=== PATIENT | female | born 1960 | race Caucasian/White ===

== ENCOUNTER 2017-07-09 08:04 | Emergency (ER) | payer MEDICAID ==
[~2017-07-09] VITALS: Ht 165.1 cm; Wt 119.6 kg
[~2017-07-09 08:04] MED LIST: ALLO300T PO; AMLO10TA2 PO; ASPI-515 PO; CHOL400T5 PO; FERR325T5 PO; FURO40TA6 PO; GLIP10TA13 PO; LEVO112T4 PO; METO-290 PO
[2017-07-09] MEDS ORDERED: AMLODIPINE 5 MG TABLET ONE (08:58)
[2017-07-09] MEDS ORDERED: DIPHENHYDRAMINE 50 MG/ML, 1ML ONE (08:58)
[2017-07-09] MEDS ORDERED: METOCLOPRAMIDE 5 MG/ML, 2ML ONE ×2 (08:59→11:12)
[2017-07-09] MEDS ORDERED: DIPHENHYDRAMINE 50 MG/ML, 1ML IM ONE (09:00)
[2017-07-09] MEDS ORDERED: AMLODIPINE 5 MG TABLET PO ONE (09:00)
[2017-07-09] MEDS ORDERED: METOPROLOL SUCCINATE 100 MG TAB.ER.24H PO SCH (09:00)
[2017-07-09] MEDS ORDERED: METOCLOPRAMIDE 5 MG/ML, 2ML IM PRN (09:00)
[2017-07-09 09:10] LABS: BASOPHILS # (AUTO) 0.07 x10^3/uL (0-0.1); BASOPHILS % (AUTO) 1 % (0-1); EOSINOPHILS # (AUTO) 0.18 x10^3/uL (0-0.4); EOSINOPHILS % (AUTO) 3 % (1-7); LYMPHOCYTES # (AUTO) 1.33 x10^3/uL (1-3.4); LYMPHOCYTES % (AUTO) 20 % (22-44); MD NO; MEAN CORPUSCULAR HEMOGLOBIN 29.3 pg (27.0-34.8); MEAN CORPUSCULAR HGB CONC 33.7 g/dL (32.4-35.8); MEAN PLATELET VOLUME 7.7 fL (7.4-10.4); MONOCYTES # (AUTO) 0.29 x10^3/uL (0.2-0.8); MONOCYTES % (AUTO) 4 % (2-9); NEUTROPHILS # (AUTO) 4.65 x10^3/uL (1.8-6.8); NEUTROPHILS % (AUTO) 71 % (42-75); PLATELET COUNT 255 x10^3/uL (130-400); RED BLOOD COUNT 3.73 x10^6/uL (3.82-5.3); RED CELL DISTRIBUTION WIDTH 15.2 % (9.6-15.2)
[2017-07-09 09:19] LABS: CHLORIDE 114 mmol/L (98-107)
[2017-07-09 09:20] LABS: ALBUMIN 3.1 g/dL (3.4-5.0); ANION GAP 8 mmol/L (5-15); CALCIUM 8.1 mg/dL (8.5-10.1); CREATININE 4.38 mg/dL (0.55-1.02)
[2017-07-09] MEDS ORDERED: METOCLOPRAMIDE 10MG TABLET PO PRN (09:30)
[2017-07-09] MEDS ORDERED: DIPHENHYDRAMINE 25 MG CAPSULE PO ONE (09:30)
[2017-07-09] MEDS ORDERED: DIPHENHYDRAMINE 50 MG CAPSULE ONE (09:31)
[2017-07-09] MEDS ORDERED: METOCLOPRAMIDE 5 MG/ML, 2ML IVPush ONE (11:00)
[2017-07-09] MEDS ORDERED: hydrALAzine 20 MG/ML, 1ML IV ONE (11:00)
[2017-07-09] MEDS ORDERED: hydrALAzine 20 MG/ML, 1ML ONE (11:12)
[2017-07-09 12:53] VITALS: BP 191/90
== END 2017-07-09 13:33 | disposition home or self-care (01) ==
LOC: ED 08:44
DX: I12.9 Hypertensive chronic kidney disease with stage 1 through stage 4 chronic kidney disease, or unspecified chronic kidney disease (principal); N18.9 Chronic kidney disease, unspecified; I50.9 Heart failure, unspecified; E11.22 Type 2 diabetes mellitus with diabetic chronic kidney disease; J44.9 Chronic obstructive pulmonary disease, unspecified; R51 Headache; Z76.0 Encounter for issue of repeat prescription; Z87.891 Personal history of nicotine dependence; Z86.73 Personal history of transient ischemic attack (TIA), and cerebral infarction without residual deficits
CPT/HCPCS: 36415; 80048; 82040; 85025; 96374; 96375; 99284; J0360; J2765; Q0163

== ENCOUNTER 2017-11-22 13:28 | Inpatient (IN) | payer MEDICAID ==
[~2017-11-22] VITALS: Ht 165.1 cm; Wt 112.9 kg
[~2017-11-22 13:28] MED LIST changes: +BUDE10.22 INH; +CALC667C PO; +CARV25TA12 PO; +CLON0.2T PO; +ERGO500017 PO; +INSU100C SQ-INSULIN; +INSU100V8 SQ; +ISOS5TAB2 PO; +METO200T47 PO; +PANT20TA2 PO; +SODI650T PO
[2017-11-22] MEDS ORDERED: SODIUM CHLORIDE FLUSH 10ML SYR IVF ONE (14:00)
[2017-11-22 14:09] LABS: BASOPHILS # (AUTO) 0.03 x10^3/uL (0-0.1); BASOPHILS % (AUTO) 0 % (0-1); EOSINOPHILS # (AUTO) 0.22 x10^3/uL (0-0.4); EOSINOPHILS % (AUTO) 3 % (1-7); LYMPHOCYTES # (AUTO) 1.25 x10^3/uL (1-3.4); LYMPHOCYTES % (AUTO) 15 % (22-44); MD NO; MEAN CORPUSCULAR HEMOGLOBIN 29.4 pg (27.0-34.8); MEAN CORPUSCULAR VOLUME 86.7 fL (80-100); MEAN PLATELET VOLUME 7.8 fL (7.4-10.4); MONOCYTES # (AUTO) 0.24 x10^3/uL (0.2-0.8); MONOCYTES % (AUTO) 3 % (2-9); NEUTROPHILS # (AUTO) 6.48 x10^3/uL (1.8-6.8); NEUTROPHILS % (AUTO) 79 % (42-75); PLATELET COUNT 323 x10^3/uL (130-400); RED BLOOD COUNT 3.22 x10^6/uL (3.82-5.3); RED CELL DISTRIBUTION WIDTH 13.5 % (9.6-15.2)
[2017-11-22 14:16] LABS: INTERNATIONAL NORMALIZED RATIO 0.99 (0.93-1.1); PROTHROMBIN TIME 10.2 Seconds (9.6-11.5)
[2017-11-22 14:19] LABS: ALBUMIN 3.4 g/dL (3.4-5.0); ANION GAP 11 mmol/L (5-15); CALCIUM 8.2 mg/dL (8.5-10.1); CHLORIDE 110 mmol/L (98-107)
[2017-11-22 14:24] LABS: ALANINE AMINOTRANSFERASE 14 U/L (12-78); ALKALINE PHOSPHATASE 112 U/L (45-117); BILIRUBIN,TOTAL 0.5 mg/dL (0.2-1.0); CREATININE 7.55 mg/dL (0.55-1.02); TOTAL PROTEIN 7.4 g/dL (6.4-8.2); TROPONIN I < 0.015 ng/mL (0.000-0.045)
[2017-11-22] MEDS ORDERED: ERGOCALCIFEROL 50,000 UNIT CAPSULE PO SCH ×2 (15:00→15:30)
[2017-11-22] MEDS ORDERED: LABETALOL 5MG/ML, 20ML IVPush PRN (15:30)
[2017-11-22] MEDS ORDERED: POLYETHYLENE GLYCOL 17 GM PACKET PO PRN (15:30)
[2017-11-22] MEDS ORDERED: ONDANSETRON ODT 4 MG PO PRN (15:30)
[2017-11-22 16:02] VITALS: BP 160/79
[2017-11-22] MEDS: HEPARIN 5,000 UNITS/ML, 1ML SQ SCH ×2 (16:14→20:29)
[2017-11-22] MEDS: IRON SUCROSE COMPLEX 100MG/5ML IV SCH (16:26)
[2017-11-22] MEDS: SODIUM BICARBONATE 650 MG TABLET PO SCH ×2 (16:27→20:28)
[2017-11-22] MEDS: CARVEDILOL 25 MG TABLET PO SCH (16:27)
[2017-11-22] MEDS ORDERED: CALCIUM ACETATE 667 MG CAPSULE PO SCH (17:00)
[2017-11-22] MEDS ORDERED: ALBUTEROL SULFATE 2.5 MG/3 ML NPPB PRN (17:00)
[2017-11-22] MEDS: INSULIN LISPRO 100 UNITS/ML, PEN SQ-INSULIN SCH ×2 (17:20→20:28)
[2017-11-22 19:00] VITALS: BP 178/80
[2017-11-22 20:21] LABS: TROPONIN I < 0.015 ng/mL (0.000-0.045)
[2017-11-22] MEDS: PANTOPRAZOLE 20MG TABLET PO SCH (20:28)
[2017-11-22 23:00] VITALS: BP 147/67
[2017-11-22] MEDS ORDERED: hydrALAzine 20 MG/ML, 1ML IV PRN (23:00)
[2017-11-23 01:02] VITALS: BP 173/74
[2017-11-23 02:14] LABS: BASOPHILS # (AUTO) 0.06 x10^3/uL (0-0.1); BASOPHILS % (AUTO) 1 % (0-1); EOSINOPHILS # (AUTO) 0.24 x10^3/uL (0-0.4); EOSINOPHILS % (AUTO) 3 % (1-7); LYMPHOCYTES # (AUTO) 2.15 x10^3/uL (1-3.4); LYMPHOCYTES % (AUTO) 25 % (22-44); MD NO; MEAN CORPUSCULAR HEMOGLOBIN 29.9 pg (27.0-34.8); MEAN CORPUSCULAR HGB CONC 34.6 g/dL (32.4-35.8); MEAN CORPUSCULAR VOLUME 86.4 fL (80-100); MEAN PLATELET VOLUME 7.8 fL (7.4-10.4); MONOCYTES # (AUTO) 0.43 x10^3/uL (0.2-0.8); MONOCYTES % (AUTO) 5 % (2-9); NEUTROPHILS # (AUTO) 5.67 x10^3/uL (1.8-6.8); NEUTROPHILS % (AUTO) 66 % (42-75); PLATELET COUNT 303 x10^3/uL (130-400); RED BLOOD COUNT 3.01 x10^6/uL (3.82-5.3); RED CELL DISTRIBUTION WIDTH 13.5 % (9.6-15.2)
[2017-11-23 02:22] LABS: ALANINE AMINOTRANSFERASE 13 U/L (12-78); ALBUMIN 3.2 g/dL (3.4-5.0); ANION GAP 12 mmol/L (5-15); CALCIUM 8.9 mg/dL (8.5-10.1); CHLORIDE 112 mmol/L (98-107)
[2017-11-23 02:24] LABS: ALKALINE PHOSPHATASE 102 U/L (45-117); BILIRUBIN,TOTAL 0.3 mg/dL (0.2-1.0); TROPONIN I < 0.015 ng/mL (0.000-0.045)
[2017-11-23] MEDS: CARVEDILOL 25 MG TABLET PO SCH ×2 (05:48→16:11)
[2017-11-23] MEDS: INSULIN LISPRO 100 UNITS/ML, PEN SQ-INSULIN SCH ×4 (07:00→21:09)
[2017-11-23 07:04] VITALS: BP 145/75
[2017-11-23] MEDS ORDERED: LIDOCAINE-MPF 1%, 2ML ONE ×2 (07:34→08:41)
[2017-11-23] MEDS: FLUTICASONE/VILANTEROL 100-25MCG/INH INH SCH (09:00)
[2017-11-23] MEDS: SENNA/DOCUSATE TABLET PO SCH (09:00)
[2017-11-23] MEDS: HEPARIN 5,000 UNITS/ML, 1ML SQ SCH ×2 (09:00→16:09)
[2017-11-23] MEDS ORDERED: PANTOPRAZOLE 20MG TABLET PO SCH (09:00)
[2017-11-23] MEDS ORDERED: ACETAMINOPHEN 325 MG TABLET ONE (12:19)
[2017-11-23] MEDS: ACETAMINOPHEN 325 MG TABLET PO PRN ×2 (12:24→18:18)
[2017-11-23] MEDS: PANTOPRAZOLE 20MG TABLET PO SCH ×2 (12:24→21:08)
[2017-11-23] MEDS: ASPIRIN 81 MG TABLET EC PO SCH (12:24)
[2017-11-23 12:29] VITALS: BP 174/82
[2017-11-23] MEDS: AMLODIPINE 5 MG TABLET PO SCH (12:29)
[2017-11-23 16:13] VITALS: BP 173/74
[2017-11-23 19:09] VITALS: BP 152/68
[2017-11-23] MEDS: DIPHENHYDRAMINE 25 MG CAPSULE PO PRN (21:57)
[2017-11-24] MEDS: HEPARIN 5,000 UNITS/ML, 1ML SQ SCH ×3 (01:00→17:00)
[2017-11-24 01:04] VITALS: BP 154/73
[2017-11-24] MEDS: ACETAMINOPHEN 325 MG TABLET PO PRN ×3 (05:16→22:22)
[2017-11-24 05:58] LABS: BASOPHILS # (AUTO) 0.04 x10^3/uL (0-0.1); BASOPHILS % (AUTO) 1 % (0-1); EOSINOPHILS # (AUTO) 0.23 x10^3/uL (0-0.4); EOSINOPHILS % (AUTO) 3 % (1-7); LYMPHOCYTES # (AUTO) 2.01 x10^3/uL (1-3.4); LYMPHOCYTES % (AUTO) 26 % (22-44); MD NO; MEAN CORPUSCULAR HEMOGLOBIN 29.8 pg (27.0-34.8); MEAN CORPUSCULAR HGB CONC 34.3 g/dL (32.4-35.8); MEAN PLATELET VOLUME 7.9 fL (7.4-10.4); MONOCYTES # (AUTO) 0.44 x10^3/uL (0.2-0.8); MONOCYTES % (AUTO) 6 % (2-9); NEUTROPHILS # (AUTO) 4.92 x10^3/uL (1.8-6.8); NEUTROPHILS % (AUTO) 65 % (42-75); PLATELET COUNT 313 x10^3/uL (130-400); RED CELL DISTRIBUTION WIDTH 13.4 % (9.6-15.2)
[2017-11-24 06:02] LABS: ALBUMIN 3.3 g/dL (3.4-5.0); ANION GAP 9 mmol/L (5-15); CALCIUM 8.7 mg/dL (8.5-10.1); CHLORIDE 109 mmol/L (98-107)
[2017-11-24 06:05] LABS: ALANINE AMINOTRANSFERASE 14 U/L (12-78); ALKALINE PHOSPHATASE 103 U/L (45-117); BILIRUBIN,TOTAL 0.4 mg/dL (0.2-1.0); CREATININE 6.11 mg/dL (0.55-1.02); TOTAL PROTEIN 7.2 g/dL (6.4-8.2)
[2017-11-24 06:48] VITALS: BP 143/82
[2017-11-24] MEDS: INSULIN LISPRO 100 UNITS/ML, PEN SQ-INSULIN SCH ×4 (07:00→21:41)
[2017-11-24] MEDS: SENNA/DOCUSATE TABLET PO SCH (07:38)
[2017-11-24] MEDS: FLUTICASONE/VILANTEROL 100-25MCG/INH INH SCH (07:38)
[2017-11-24] MEDS: CARVEDILOL 25 MG TABLET PO SCH ×2 (07:38→17:35)
[2017-11-24] MEDS: ONDANSETRON 2MG/ML, 2ML IVPush PRN (12:00)
[2017-11-24] MEDS: AMLODIPINE 5 MG TABLET PO SCH (12:00)
[2017-11-24] MEDS: ASPIRIN 81 MG TABLET EC PO SCH (12:22)
[2017-11-24] MEDS: IRON SUCROSE COMPLEX 100MG/5ML IV SCH (12:22)
[2017-11-24] MEDS: PANTOPRAZOLE 20MG TABLET PO SCH ×2 (12:22→21:41)
[2017-11-24 13:12] VITALS: BP 119/71
[2017-11-24 19:47] LABS: TROPONIN I < 0.015 ng/mL (0.000-0.045)
[2017-11-24] MEDS: DIPHENHYDRAMINE 25 MG CAPSULE PO PRN (21:41)
[2017-11-24 22:10] VITALS: BP 144/72
[2017-11-25] MEDS: HEPARIN 5,000 UNITS/ML, 1ML SQ SCH ×4 (01:00→21:09)
[2017-11-25 01:06] VITALS: BP 129/77
[2017-11-25 05:33] LABS: BASOPHILS # (AUTO) 0.02 x10^3/uL (0-0.1); BASOPHILS % (AUTO) 0 % (0-1); EOSINOPHILS # (AUTO) 0.26 x10^3/uL (0-0.4); EOSINOPHILS % (AUTO) 3 % (1-7); LYMPHOCYTES # (AUTO) 2.15 x10^3/uL (1-3.4); LYMPHOCYTES % (AUTO) 25 % (22-44); MD NO; MEAN CORPUSCULAR HEMOGLOBIN 29.2 pg (27.0-34.8); MEAN CORPUSCULAR HGB CONC 33.4 g/dL (32.4-35.8); MEAN CORPUSCULAR VOLUME 87.2 fL (80-100); MEAN PLATELET VOLUME 7.7 fL (7.4-10.4); MONOCYTES % (AUTO) 2 % (2-9); NEUTROPHILS # (AUTO) 6.11 x10^3/uL (1.8-6.8); NEUTROPHILS % (AUTO) 70 % (42-75); PLATELET COUNT 296 x10^3/uL (130-400); RED BLOOD COUNT 3.33 x10^6/uL (3.82-5.3); RED CELL DISTRIBUTION WIDTH 13.8 % (9.6-15.2)
[2017-11-25 05:45] LABS: ALBUMIN 3.4 g/dL (3.4-5.0); ANION GAP 10 mmol/L (5-15); CALCIUM 8.2 mg/dL (8.5-10.1); CHLORIDE 105 mmol/L (98-107)
[2017-11-25 05:49] LABS: ALANINE AMINOTRANSFERASE 16 U/L (12-78); ALKALINE PHOSPHATASE 103 U/L (45-117); BILIRUBIN,TOTAL 0.4 mg/dL (0.2-1.0); CREATININE 5.54 mg/dL (0.55-1.02); TOTAL PROTEIN 7.4 g/dL (6.4-8.2)
[2017-11-25 05:55] LABS: TROPONIN I < 0.015 ng/mL (0.000-0.045)
[2017-11-25] MEDS: INSULIN LISPRO 100 UNITS/ML, PEN SQ-INSULIN SCH ×4 (07:00→21:08)
[2017-11-25 07:12] VITALS: BP 137/73
[2017-11-25] MEDS: SENNA/DOCUSATE TABLET PO SCH ×2 (09:00→17:04)
[2017-11-25] MEDS: ACETAMINOPHEN 325 MG TABLET PO PRN ×2 (09:02→23:01)
[2017-11-25] MEDS: ONDANSETRON 2MG/ML, 2ML IVPush PRN (09:34)
[2017-11-25 12:53] VITALS: BP 150/80
[2017-11-25] MEDS: FLUTICASONE/VILANTEROL 100-25MCG/INH INH SCH (12:55)
[2017-11-25] MEDS: AMLODIPINE 5 MG TABLET PO SCH (12:55)
[2017-11-25] MEDS: PANTOPRAZOLE 20MG TABLET PO SCH ×2 (12:55→21:08)
[2017-11-25] MEDS: CARVEDILOL 25 MG TABLET PO SCH ×2 (12:56→21:08)
[2017-11-25] MEDS: ASPIRIN 81 MG TABLET EC PO SCH (12:56)
[2017-11-25 15:14] VITALS: BP 106/70
[2017-11-25 20:00] VITALS: BP 134/77
[2017-11-25] MEDS: DIPHENHYDRAMINE 25 MG CAPSULE PO PRN (23:01)
[2017-11-26] VITALS (7 sets, daily range): BP systolic 85–131; BP diastolic 46–80
[2017-11-26 05:57] LABS: CHLORIDE 102 mmol/L (98-107)
[2017-11-26] MEDS: CARVEDILOL 25 MG TABLET PO SCH ×2 (05:59→18:00)
[2017-11-26 06:18] LABS: ALANINE AMINOTRANSFERASE 17 U/L (12-78); ALBUMIN 3.4 g/dL (3.4-5.0); ALKALINE PHOSPHATASE 103 U/L (45-117); ANION GAP 9 mmol/L (5-15); BILIRUBIN,TOTAL 0.5 mg/dL (0.2-1.0); CALCIUM 8.3 mg/dL (8.5-10.1); TOTAL PROTEIN 7.3 g/dL (6.4-8.2)
[2017-11-26] MEDS: INSULIN LISPRO 100 UNITS/ML, PEN SQ-INSULIN SCH ×4 (07:00→20:44)
[2017-11-26] MEDS: AMLODIPINE 5 MG TABLET PO SCH (09:00)
[2017-11-26] MEDS: HEPARIN 5,000 UNITS/ML, 1ML SQ SCH (09:00)
[2017-11-26] MEDS: SENNA/DOCUSATE TABLET PO SCH (09:00)
[2017-11-26] MEDS: ASPIRIN 81 MG TABLET EC PO SCH (09:39)
[2017-11-26] MEDS: IRON SUCROSE COMPLEX 100MG/5ML IV SCH ×2 (09:39→10:14)
[2017-11-26] MEDS: FLUTICASONE/VILANTEROL 100-25MCG/INH INH SCH (09:39)
[2017-11-26] MEDS: PANTOPRAZOLE 20MG TABLET PO SCH ×2 (09:40→20:43)
[2017-11-27 02:00] VITALS: BP 141/73
[2017-11-27] MEDS: CARVEDILOL 25 MG TABLET PO SCH (05:57)
[2017-11-27] MEDS: INSULIN LISPRO 100 UNITS/ML, PEN SQ-INSULIN SCH ×4 (07:40→19:58)
[2017-11-27 07:44] VITALS: BP 144/67
[2017-11-27] MEDS ORDERED: MIDAZOLAM 1 MG/ML, 5ML ONE (08:36)
[2017-11-27] MEDS ORDERED: FENTANYL PF 100 MCG/2ML ONE (08:36)
[2017-11-27] MEDS ORDERED: LIDOCAINE 2%, 20ML ONE ×3 (08:55→08:56)
[2017-11-27] MEDS ORDERED: CEFAZOLIN PMX 1GM/50ML 50 ML ONE (09:22)
[2017-11-27] MEDS: PANTOPRAZOLE 20MG TABLET PO SCH ×2 (11:14→19:57)
[2017-11-27] MEDS: SENNA/DOCUSATE TABLET PO SCH (11:14)
[2017-11-27] MEDS: ASPIRIN 81 MG TABLET EC PO SCH (11:14)
[2017-11-27] MEDS: FLUTICASONE/VILANTEROL 100-25MCG/INH INH SCH (11:14)
[2017-11-27] MEDS: ACETAMINOPHEN 325 MG TABLET PO PRN (13:36)
[2017-11-27] MEDS: ONDANSETRON 2MG/ML, 2ML IVPush PRN (13:36)
[2017-11-27 15:14] VITALS: BP 144/77
[2017-11-27 20:00] VITALS: BP 136/65
[2017-11-27] MEDS: MORPHINE SULFATE 4 MG/ML, 1ML IVPush PRN (21:53)
[2017-11-28 02:00] VITALS: BP 159/68
[2017-11-28 07:45] VITALS: BP 129/66
[2017-11-28] MEDS: INSULIN LISPRO 100 UNITS/ML, PEN SQ-INSULIN SCH ×2 (08:12→11:22)
[2017-11-28] MEDS: FLUTICASONE/VILANTEROL 100-25MCG/INH INH SCH (08:53)
[2017-11-28] MEDS: PANTOPRAZOLE 20MG TABLET PO SCH (08:53)
[2017-11-28] MEDS: ASPIRIN 81 MG TABLET EC PO SCH (08:53)
[2017-11-28] MEDS: SENNA/DOCUSATE TABLET PO SCH (08:53)
[2017-11-28] MEDS: IRON SUCROSE COMPLEX 100MG/5ML IV SCH (08:53)
[2017-11-28] MEDS: MORPHINE SULFATE 4 MG/ML, 1ML IVPush PRN (08:54)
[2017-11-28] MEDS ORDERED: AMLODIPINE 5 MG TABLET PO SCH (09:00)
[2017-11-28] MEDS: ONDANSETRON 2MG/ML, 2ML IVPush PRN (11:22)
[2017-11-28 15:33] VITALS: BP 136/73
== END 2017-11-28 17:36 | disposition home or self-care (01) | DRG 291 ==
LOC: ED 14:09 → EDIP 14:51 → 4WST 16:00
PROVIDERS: ADMIT Internal Medicine; ATTEND Internal Medicine
PROC: 5A1D70Z Performance of Urinary Filtration, Intermittent, Less than 6 Hours Per Day (ICD-10-PCS; 2017-11-23)
PROC: 5A1D70Z Performance of Urinary Filtration, Intermittent, Less than 6 Hours Per Day (ICD-10-PCS; 2017-11-24)
PROC: 5A1D70Z Performance of Urinary Filtration, Intermittent, Less than 6 Hours Per Day (ICD-10-PCS; 2017-11-25)
PROC: 0JH63XZ Insertion of Tunneled Vascular Access Device into Chest Subcutaneous Tissue and Fascia, Percutaneous Approach (ICD-10-PCS; principal; 2017-11-27)
PROC: 02HV33Z Insertion of Infusion Device into Superior Vena Cava, Percutaneous Approach (ICD-10-PCS; 2017-11-27)
PROC: B5181ZA Fluoroscopy of Superior Vena Cava using Low Osmolar Contrast, Guidance (ICD-10-PCS; 2017-11-27)
PROC: 5A1D70Z Performance of Urinary Filtration, Intermittent, Less than 6 Hours Per Day (ICD-10-PCS; 2017-11-27)
PROC: B548ZZA Ultrasonography of Superior Vena Cava, Guidance (ICD-10-PCS; 2017-11-27)
DX: I13.2 Hypertensive heart and chronic kidney disease with heart failure and with stage 5 chronic kidney disease, or end stage renal disease (principal); N18.6 End stage renal disease; N17.9 Acute kidney failure, unspecified; I50.32 Chronic diastolic (congestive) heart failure; J96.10 Chronic respiratory failure, unspecified whether with hypoxia or hypercapnia; E87.2 Acidosis; E44.0 Moderate protein-calorie malnutrition; N25.81 Secondary hyperparathyroidism of renal origin; D63.1 Anemia in chronic kidney disease; M10.9 Gout, unspecified; K21.9 Gastro-esophageal reflux disease without esophagitis; E03.9 Hypothyroidism, unspecified; E11.22 Type 2 diabetes mellitus with diabetic chronic kidney disease; E11.65 Type 2 diabetes mellitus with hyperglycemia; N25.0 Renal osteodystrophy; E66.9 Obesity, unspecified; E55.9 Vitamin D deficiency, unspecified; Z99.81 Dependence on supplemental oxygen; Z99.2 Dependence on renal dialysis; Z91.19 Patient's noncompliance with other medical treatment and regimen; Z86.73 Personal history of transient ischemic attack (TIA), and cerebral infarction without residual deficits; Z84.1 Family history of disorders of kidney and ureter; Z82.49 Family history of ischemic heart disease and other diseases of the circulatory system; Z72.0 Tobacco use; Z90.89 Acquired absence of other organs; Z98.51 Tubal ligation status; Z88.8 Allergy status to other drugs, medicaments and biological substances; Z68.27 Body mass index [BMI] 27.0-27.9, adult
CPT/HCPCS: 36415; 36556; 36558; 71045; 77001; 80053; 80074; 82962; 83735; 83970; 84100; 84484; 85025; 85610; 85730; 86480; 93005; 99285; C1894; J0690; J1756; J2250; J2405; J3010; J3490; C1750; C1751; G0365; J0360; J1642; J1815; Q0163

== ENCOUNTER 2017-12-15 00:54 | Emergency (ER) | payer MEDICAID ==
[~2017-12-15] VITALS: Ht 165.1 cm; Wt 112.0 kg
[2017-12-15 01:20] LABS: BASOPHILS # (AUTO) 0.13 x10^3/uL (0-0.1); BASOPHILS % (AUTO) 2 % (0-1); EOSINOPHILS # (AUTO) 0.22 x10^3/uL (0-0.4); EOSINOPHILS % (AUTO) 3 % (1-7); LYMPHOCYTES # (AUTO) 2.61 x10^3/uL (1-3.4); LYMPHOCYTES % (AUTO) 32 % (22-44); MD NO; MEAN CORPUSCULAR HEMOGLOBIN 30.5 pg (27.0-34.8); MEAN CORPUSCULAR HGB CONC 33.7 g/dL (32.4-35.8); MEAN CORPUSCULAR VOLUME 90.6 fL (80-100); MEAN PLATELET VOLUME 7.9 fL (7.4-10.4); MONOCYTES # (AUTO) 0.34 x10^3/uL (0.2-0.8); MONOCYTES % (AUTO) 4 % (2-9); NEUTROPHILS # (AUTO) 4.92 x10^3/uL (1.8-6.8); NEUTROPHILS % (AUTO) 60 % (42-75); PLATELET COUNT 335 x10^3/uL (130-400); RED BLOOD COUNT 3.31 x10^6/uL (3.82-5.3)
[2017-12-15 01:29] LABS: ALANINE AMINOTRANSFERASE 17 U/L (12-78); ALBUMIN 3.3 g/dL (3.4-5.0); ANION GAP 5 mmol/L (5-15); CALCIUM 8.4 mg/dL (8.5-10.1); CHLORIDE 102 mmol/L (98-107); CREATININE 5.92 mg/dL (0.55-1.02)
[2017-12-15 01:33] LABS: ALKALINE PHOSPHATASE 94 U/L (45-117); BILIRUBIN,TOTAL 0.4 mg/dL (0.2-1.0); TOTAL PROTEIN 7.1 g/dL (6.4-8.2); TROPONIN I < 0.015 ng/mL (0.000-0.045)
[2017-12-15 02:20] VITALS: BP 129/52
== END 2017-12-15 03:28 | disposition home or self-care (01) ==
LOC: ED 01:26
DX: R07.2 Precordial pain (principal); I11.0 Hypertensive heart disease with heart failure; I50.9 Heart failure, unspecified; E11.9 Type 2 diabetes mellitus without complications; Z86.73 Personal history of transient ischemic attack (TIA), and cerebral infarction without residual deficits
CPT/HCPCS: 36415; 71045; 80053; 84484; 85025; 93005; 99285

== ENCOUNTER 2017-12-25 18:44 | Inpatient (IN) | payer MEDICAID ==
[~2017-12-25] VITALS: Ht 165.1 cm; Wt 80.3 kg
[2017-12-25] MEDS ORDERED: OMEP-110 PO (19:01)
[2017-12-25] MEDS ORDERED: ASPIRIN 81 MG TABLET CHEW ONE (19:07)
[2017-12-25 19:27] LABS: BASOPHILS # (AUTO) 0.01 x10^3/uL (0-0.1); BASOPHILS % (AUTO) 0 % (0-1); EOSINOPHILS # (AUTO) 0.01 x10^3/uL (0-0.4); EOSINOPHILS % (AUTO) 0 % (1-7); LYMPHOCYTES # (AUTO) 1.03 x10^3/uL (1-3.4); LYMPHOCYTES % (AUTO) 10 % (22-44); MD NO; MEAN CORPUSCULAR HEMOGLOBIN 30.2 pg (27.0-34.8); MEAN CORPUSCULAR HGB CONC 33.2 g/dL (32.4-35.8); MEAN CORPUSCULAR VOLUME 90.7 fL (80-100); MONOCYTES # (AUTO) 0.15 x10^3/uL (0.2-0.8); MONOCYTES % (AUTO) 2 % (2-9); NEUTROPHILS # (AUTO) 8.76 x10^3/uL (1.8-6.8); NEUTROPHILS % (AUTO) 88 % (42-75); PLATELET COUNT 333 x10^3/uL (130-400)
[2017-12-25 19:30] LABS: ALANINE AMINOTRANSFERASE 27 U/L (12-78); ALBUMIN 3.3 g/dL (3.4-5.0); ANION GAP 8 mmol/L (5-15); CHLORIDE 100 mmol/L (98-107); CREATININE 3.67 mg/dL (0.55-1.02)
[2017-12-25] MEDS ORDERED: ASPIRIN 81 MG TABLET CHEW PO ONE (19:30)
[2017-12-25 19:33] LABS: INTERNATIONAL NORMALIZED RATIO 0.96 (0.93-1.1)
[2017-12-25 19:35] LABS: ALKALINE PHOSPHATASE 130 U/L (45-117); BILIRUBIN,TOTAL 0.5 mg/dL (0.2-1.0); TOTAL PROTEIN 7.5 g/dL (6.4-8.2); TROPONIN I 0.023 ng/mL (0.000-0.045)
[2017-12-25] MEDS ORDERED: FUROSEMIDE 20 MG/2 ML IV ONE (21:30)
[2017-12-25 22:45] VITALS: BP 138/72
[2017-12-25] MEDS ORDERED: ERGOCALCIFEROL 50,000 UNIT CAPSULE PO SCH (23:30)
[2017-12-26] MEDS ORDERED: DOCUSATE 100 MG CAPSULE PO PRN
[2017-12-26] MEDS ORDERED: hydrALAzine 20 MG/ML, 1ML IVPush PRN
[2017-12-26] MEDS ORDERED: PROMETHAZINE 25 MG/ML, 1ML IM PRN
[2017-12-26] MEDS ORDERED: ACETAMINOPHEN 325 MG TABLET PO PRN
[2017-12-26] MEDS ORDERED: BISACODYL 10 MG SUPP PR PRN
[2017-12-26] MEDS ORDERED: ONDANSETRON 2MG/ML, 2ML IVPush PRN
[2017-12-26] MEDS ORDERED: POLYETHYLENE GLYCOL 17 GM PACKET PO PRN
[2017-12-26] MEDS ORDERED: LABETALOL 5MG/ML, 20ML IVPush PRN
[2017-12-26] MEDS ORDERED: ONDANSETRON ODT 4 MG PO PRN
[2017-12-26 00:11] LABS: FREE T4 (FREE THYROXINE) 1.28 ng/dL (0.76-1.46); THYROID STIMULATING HORMONE 4.12 mIU/L (0.358-3.740)
[2017-12-26 00:17] LABS: HEMOGLOBIN A1C 5.5 % (4.2-6.3)
[2017-12-26] MEDS: FUROSEMIDE 40 MG/4 ML IV SCH ×2 (00:17→08:58)
[2017-12-26] MEDS ORDERED: ALBUTEROL SULFATE 2.5 MG/3 ML NPPB PRN (01:00)
[2017-12-26 03:24] LABS: BASOPHILS # (AUTO) 0.02 x10^3/uL (0-0.1); BASOPHILS % (AUTO) 0 % (0-1); EOSINOPHILS # (AUTO) 0.08 x10^3/uL (0-0.4); EOSINOPHILS % (AUTO) 1 % (1-7); LYMPHOCYTES # (AUTO) 1.81 x10^3/uL (1-3.4); LYMPHOCYTES % (AUTO) 18 % (22-44); MD NO; MEAN CORPUSCULAR HEMOGLOBIN 30.5 pg (27.0-34.8); MEAN CORPUSCULAR HGB CONC 33.6 g/dL (32.4-35.8); MEAN CORPUSCULAR VOLUME 90.6 fL (80-100); MEAN PLATELET VOLUME 7.9 fL (7.4-10.4); MONOCYTES # (AUTO) 0.34 x10^3/uL (0.2-0.8); MONOCYTES % (AUTO) 3 % (2-9); NEUTROPHILS % (AUTO) 77 % (42-75); PLATELET COUNT 330 x10^3/uL (130-400); RED BLOOD COUNT 3.71 x10^6/uL (3.82-5.3); RED CELL DISTRIBUTION WIDTH 14.8 % (9.6-15.2)
[2017-12-26 03:36] LABS: ALBUMIN 3.1 g/dL (3.4-5.0); ANION GAP 8 mmol/L (5-15); CALCIUM 8.6 mg/dL (8.5-10.1); CHLORIDE 101 mmol/L (98-107)
[2017-12-26 03:44] LABS: ALANINE AMINOTRANSFERASE 22 U/L (12-78); ALKALINE PHOSPHATASE 113 U/L (45-117); BILIRUBIN,TOTAL 0.5 mg/dL (0.2-1.0); CHOL/HDL RATIO 4.4; CHOLESTEROL, TOTAL 164 mg/dL (140-239); CREATININE 4.68 mg/dL (0.55-1.02); HDL CHOL % 23 % (28-40); HDL CHOLESTEROL (DIRECT) 37 mg/dL (40-60); LDL CHOLESTEROL,CALCULATED 81 mg/dL (54-169); LDL/HDL RATIO 2.2 (0.5-3.0); TOTAL PROTEIN 7.1 g/dL (6.4-8.2); TRIGLYCERIDES 231 mg/dL (50-200); TROPONIN I 0.145 ng/mL (0.000-0.045); VLDL CHOLESTEROL 46 mg/dL (0-25)
[2017-12-26] MEDS ORDERED: TEMPLATE NON-FORMULARY MED. (Carvedilol** 25 MG) PO SCH (06:00)
[2017-12-26 06:01] VITALS: BP 125/70
[2017-12-26] MEDS: HEPARIN 5,000 UNITS/ML, 1ML SQ SCH ×3 (06:04→22:14)
[2017-12-26] MEDS: INSULIN LISPRO 100 UNITS/ML, PEN SQ-INSULIN SCH ×4 (07:00→20:50)
[2017-12-26] MEDS: CALCIUM ACETATE 667 MG CAPSULE PO SCH ×3 (08:00→20:50)
[2017-12-26 08:23] VITALS: BP 157/79
[2017-12-26] MEDS: OMEPRAZOLE 20 MG CAPSULE.DR PO SCH (08:53)
[2017-12-26] MEDS: LOSARTAN 50MG TABLET PO SCH (08:53)
[2017-12-26] MEDS: AMLODIPINE 5 MG TABLET PO SCH (08:53)
[2017-12-26] MEDS: ASPIRIN 81 MG TABLET EC PO SCH (08:53)
[2017-12-26] MEDS: CARVEDILOL 12.5 MG TABLET PO SCH ×2 (08:58→20:50)
[2017-12-26] MEDS: SODIUM BICARBONATE 650 MG TABLET PO SCH ×3 (09:00→20:48)
[2017-12-26 10:54] LABS: TROPONIN I 0.063 ng/mL (0.000-0.045)
[2017-12-26 13:50] VITALS: BP 115/72
[2017-12-26] MEDS ORDERED: OMNIPAQUE 350 MG/ML, 100ML BOTTLE ONE (16:19)
[2017-12-26 19:57] VITALS: BP 102/64
[2017-12-26] MEDS ORDERED: ATORVASTATIN 40 MG TABLET PO SCH (21:00)
[2017-12-27 02:56] VITALS: BP 102/65
[2017-12-27 05:50] LABS: BASOPHILS # (AUTO) 0.06 x10^3/uL (0-0.1); BASOPHILS % (AUTO) 1 % (0-1); EOSINOPHILS # (AUTO) 0.33 x10^3/uL (0-0.4); EOSINOPHILS % (AUTO) 3 % (1-7); LYMPHOCYTES # (AUTO) 2.61 x10^3/uL (1-3.4); LYMPHOCYTES % (AUTO) 26 % (22-44); MD NO; MEAN CORPUSCULAR HEMOGLOBIN 30.5 pg (27.0-34.8); MEAN CORPUSCULAR HGB CONC 33.4 g/dL (32.4-35.8); MEAN CORPUSCULAR VOLUME 91.1 fL (80-100); MEAN PLATELET VOLUME 8.2 fL (7.4-10.4); MONOCYTES # (AUTO) 0.56 x10^3/uL (0.2-0.8); MONOCYTES % (AUTO) 6 % (2-9); NEUTROPHILS # (AUTO) 6.46 x10^3/uL (1.8-6.8); NEUTROPHILS % (AUTO) 65 % (42-75); PLATELET COUNT 297 x10^3/uL (130-400); RED BLOOD COUNT 3.55 x10^6/uL (3.82-5.3); RED CELL DISTRIBUTION WIDTH 15.5 % (9.6-15.2)
[2017-12-27 06:05] LABS: ALBUMIN 3.4 g/dL (3.4-5.0); CALCIUM 8.6 mg/dL (8.5-10.1); CHLORIDE 100 mmol/L (98-107)
[2017-12-27 06:18] LABS: ANION GAP 10 mmol/L (5-15); CREATININE 7.37 mg/dL (0.55-1.02)
[2017-12-27] MEDS: HEPARIN 5,000 UNITS/ML, 1ML SQ SCH ×2 (06:27→14:00)
[2017-12-27 06:57] LABS: CULTURE INDICATED? YES; MICROSCOPIC INDICATED
[2017-12-27 07:50] VITALS: BP 110/70
[2017-12-27] MEDS: INSULIN LISPRO 100 UNITS/ML, PEN SQ-INSULIN SCH ×3 (08:19→16:00)
[2017-12-27] MEDS: ASPIRIN 81 MG TABLET EC PO SCH (08:20)
[2017-12-27] MEDS: CALCIUM ACETATE 667 MG CAPSULE PO SCH ×3 (08:21→17:00)
[2017-12-27] MEDS: FUROSEMIDE 40 MG/4 ML IV SCH (08:21)
[2017-12-27] MEDS: SODIUM BICARBONATE 650 MG TABLET PO SCH ×2 (08:21→16:00)
[2017-12-27] MEDS: CARVEDILOL 12.5 MG TABLET PO SCH ×2 (08:22→18:00)
[2017-12-27] MEDS: AMLODIPINE 5 MG TABLET PO SCH (08:22)
[2017-12-27] MEDS: OMEPRAZOLE 20 MG CAPSULE.DR PO SCH (08:22)
[2017-12-27] MEDS: LOSARTAN 50MG TABLET PO SCH (08:22)
[2017-12-27] MEDS ORDERED: ERGOCALCIFEROL 50,000 UNIT CAPSULE PO SCH (09:00)
[2017-12-27] MEDS ORDERED: CARV6.2512 PO (12:00)
[2017-12-27] MEDS ORDERED: LOSA50TA2 PO (12:00)
[2017-12-27] MEDS ORDERED: FURO40TA6 PO (12:00)
[2017-12-27] MEDS ORDERED: ATOR20TA PO (12:00)
[2017-12-27] MEDS ORDERED: DOCU-131 PO (12:00)
[2017-12-27] MEDS ORDERED: ALBU18HF INH (12:00)
[2017-12-27] MEDS ORDERED: CEFD300C37 PO (12:02)
[2017-12-27] MEDS ORDERED: CEFTRIAXONE 1,000 MG in SODIUM CHLORIDE 0.9% 50 ML IV SCH (12:30)
[2017-12-27] MEDS ORDERED: CALCIUM CARBONATE 500 MG TAB.CHEW PO PRN (14:00)
[2017-12-27] MEDS ORDERED: FENTANYL 12 MCG PATCH TD SCH (14:00)
[2017-12-27 15:34] VITALS: BP 131/79
[2017-12-27 18:53] VITALS: BP 117/65
[2017-12-28] MEDS ORDERED: AMLODIPINE 5 MG TABLET PO SCH (09:00)
== END 2017-12-27 19:30 | disposition home or self-care (01) | DRG 291 ==
LOC: ED 20:39 → EDIP 21:14 → 5SO 22:57
PROVIDERS: ADMIT Internal Medicine; ATTEND Internal Medicine
PROC: 5A1D70Z Performance of Urinary Filtration, Intermittent, Less than 6 Hours Per Day (ICD-10-PCS; principal; 2017-12-27)
PROC: 5A1D70Z Performance of Urinary Filtration, Intermittent, Less than 6 Hours Per Day (ICD-10-PCS; 2017-12-27)
DX: I13.2 Hypertensive heart and chronic kidney disease with heart failure and with stage 5 chronic kidney disease, or end stage renal disease (principal); E43 Unspecified severe protein-calorie malnutrition; I50.33 Acute on chronic diastolic (congestive) heart failure; J96.01 Acute respiratory failure with hypoxia; N18.6 End stage renal disease; N39.0 Urinary tract infection, site not specified; D63.1 Anemia in chronic kidney disease; E11.22 Type 2 diabetes mellitus with diabetic chronic kidney disease; E55.9 Vitamin D deficiency, unspecified; F41.1 Generalized anxiety disorder; I16.0 Hypertensive urgency; I27.20 Pulmonary hypertension, unspecified; K21.9 Gastro-esophageal reflux disease without esophagitis; N25.0 Renal osteodystrophy; Z79.82 Long term (current) use of aspirin; Z68.29 Body mass index [BMI] 29.0-29.9, adult; Z84.1 Family history of disorders of kidney and ureter; Z86.73 Personal history of transient ischemic attack (TIA), and cerebral infarction without residual deficits; Z87.891 Personal history of nicotine dependence; Z91.19 Patient's noncompliance with other medical treatment and regimen; Z99.2 Dependence on renal dialysis; Z98.51 Tubal ligation status; Z90.89 Acquired absence of other organs
CPT/HCPCS: 36415; 84145; 99285; J7613; 71045; 71275; 80048; 80053; 80061; 81001; 82040; 82962; 83036; 83735; 83880; 84439; 84443; 84484; 85025; 85379; 85610; 85730; 86704; 86706; 87086; 87340; 93005; 94640; J0696; J1940; Q0162; Q9967; J1815

== ENCOUNTER 2018-04-30 22:12 | Emergency (ER) | payer MEDICARE, MEDICAID ==
[~2018-04-30] VITALS: Ht 165.1 cm; Wt 122.5 kg
[~2018-04-30 22:12] MED LIST changes: +ALBU18HF INH; -AMLO10TA2 PO; +AMLO10TA6 PO; +ATOR20TA PO; +CARV6.2512 PO; +CEFD300C37 PO; +DOCU-131 PO; +LOSA50TA2 PO; +OMEP-110 PO
[2018-04-30 22:57] LABS: BASOPHILS # (AUTO) 0.06 x10^3/uL (0-0.1); BASOPHILS % (AUTO) 1 % (0-1); EOSINOPHILS # (AUTO) 0.11 x10^3/uL (0-0.4); EOSINOPHILS % (AUTO) 2 % (1-7); LYMPHOCYTES # (AUTO) 1.54 x10^3/uL (1-3.4); LYMPHOCYTES % (AUTO) 20 % (22-44); MD NO; MEAN CORPUSCULAR HGB CONC 34.5 g/dL (32.4-35.8); MEAN CORPUSCULAR VOLUME 92.7 fL (80-100); MEAN PLATELET VOLUME 7.8 fL (7.4-10.4); MONOCYTES # (AUTO) 0.33 x10^3/uL (0.2-0.8); MONOCYTES % (AUTO) 4 % (2-9); NEUTROPHILS # (AUTO) 5.86 x10^3/uL (1.8-6.8); NEUTROPHILS % (AUTO) 74 % (42-75); PLATELET COUNT 274 x10^3/uL (130-400); RED BLOOD COUNT 3.13 x10^6/uL (3.82-5.3); RED CELL DISTRIBUTION WIDTH 14.1 % (9.6-15.2)
[2018-04-30 23:11] LABS: ALANINE AMINOTRANSFERASE 14 U/L (12-78); ALBUMIN 3.4 g/dL (3.4-5.0); ANION GAP 11 mmol/L (5-15); CALCIUM 8.3 mg/dL (8.5-10.1); CHLORIDE 102 mmol/L (98-107); CREATININE 5.47 mg/dL (0.55-1.02)
[2018-04-30 23:15] LABS: ALKALINE PHOSPHATASE 103 U/L (45-117); BILIRUBIN,TOTAL 0.4 mg/dL (0.2-1.0); TOTAL PROTEIN 7.7 g/dL (6.4-8.2); TROPONIN I < 0.015 ng/mL (0.000-0.045)
[2018-05-01 01:22] VITALS: BP 105/56
== END 2018-05-01 01:24 | disposition home or self-care (01) ==
LOC: ED 22:46
DX: M54.6 Pain in thoracic spine (principal); R53.1 Weakness; I50.9 Heart failure, unspecified; I10 Essential (primary) hypertension; E11.9 Type 2 diabetes mellitus without complications; Z87.891 Personal history of nicotine dependence; Z88.8 Allergy status to other drugs, medicaments and biological substances; Z88.6 Allergy status to analgesic agent; Z86.73 Personal history of transient ischemic attack (TIA), and cerebral infarction without residual deficits
CPT/HCPCS: 36415; 71045; 80053; 83880; 84484; 85025; 93005; 99284

== ENCOUNTER 2018-05-27 07:03 | Day surgery (SDC) | payer MEDICARE, MEDICAID ==
[~2018-05-27] VITALS: Ht 165.1 cm; Wt 123.7 kg
[2018-05-27] MEDS ORDERED: HEPARIN 1,000 UNITS/ML, 10ML ONE (07:11)
[2018-05-27] MEDS ORDERED: GLYCOPYRROLATE 0.4 MG/2 ML, 2ML ONE (08:11)
[2018-05-27] MEDS ORDERED: ROCURONIUM 10MG/ML,5ML ONE (08:11)
[2018-05-27] MEDS ORDERED: LIDOCAINE-MPF 2% ,5ML ONE (08:11)
[2018-05-27] MEDS ORDERED: DEXAMETHASONE 4 MG/ML, 1ML ONE (08:11)
[2018-05-27] MEDS ORDERED: MIDAZOLAM 1 MG/ML, 2ML ONE (08:11)
[2018-05-27] MEDS ORDERED: PROPOFOL 10 MG/ML, 20ML ONE (08:11)
[2018-05-27] MEDS ORDERED: SODIUM CHLORIDE 0.9% 1,000 ML IV SCH (08:17)
[2018-05-27] MEDS ORDERED: INSU100V8 SQ (08:23)
[2018-05-27 08:25] VITALS: BP 137/81
[2018-05-27] MEDS ORDERED: BUPIVACAINE/PF 0.5% ONE (08:28)
[2018-05-27] MEDS ORDERED: LABETALOL 20 MG/4 ML ONE (08:41)
[2018-05-27] MEDS ORDERED: FURO20TA3 PO (08:45)
[2018-05-27] MEDS ORDERED: ATOR20TA37 PO (08:45)
[2018-05-27] MEDS ORDERED: CARV6.252 PO (08:45)
[2018-05-27] MEDS ORDERED: LOSA50TA7 PO (08:45)
[2018-05-27] MEDS ORDERED: CALC667T PO (08:45)
[2018-05-27] MEDS ORDERED: AMLO10TA6 PO (08:45)
[2018-05-27] MEDS ORDERED: HYDROcodone/APAP 7.5-325MG/15ML UDC PO PRN (09:00)
[2018-05-27] MEDS ORDERED: HYDROmorphone 2 MG/ML, 1ML IVPush PRN (09:00)
[2018-05-27] MEDS ORDERED: ONDANSETRON 2MG/ML, 2ML IV PRN (09:00)
[2018-05-27] MEDS ORDERED: MIDAZOLAM 1 MG/ML, 2ML IV PRN (09:00)
[2018-05-27] MEDS ORDERED: DEXAMETHASONE 4 MG/ML, 1ML IV PRN (09:00)
[2018-05-27] MEDS ORDERED: ONDANSETRON 2MG/ML, 2ML ONE (10:06)
[2018-05-27] MEDS ORDERED: OXYcodone 5 MG/5 ML ORAL.SOL UDC ONE (10:12)
[2018-05-27] MEDS ORDERED: FENTANYL PF 100 MCG/2ML ONE (10:12)
[2018-05-27] MEDS: FENTANYL PF 100 MCG/2ML IV PRN ×2 (10:14→10:46)
[2018-05-27] MEDS ORDERED: METOCLOPRAMIDE 5 MG/ML, 2ML ONE (10:22)
[2018-05-27] MEDS ORDERED: METOCLOPRAMIDE 5 MG/ML, 2ML IVPush PRN (10:30)
[2018-05-27] MEDS: OXYcodone 5 MG/5 ML ORAL.SOL UDC PO PRN ×2 (10:46→13:23)
== END 2018-05-27 14:21 | disposition home or self-care (01) ==
LOC: OUT 07:03
PROVIDERS: ATTEND Surgery Vascular Surgery
DX: E11.22 Type 2 diabetes mellitus with diabetic chronic kidney disease (principal); I12.0 Hypertensive chronic kidney disease with stage 5 chronic kidney disease or end stage renal disease; N18.6 End stage renal disease; E66.01 Morbid (severe) obesity due to excess calories; Z88.8 Allergy status to other drugs, medicaments and biological substances
CPT/HCPCS: 36415; 36821; 80047; J1100; J1644; J2250; J2405; J2704; J2765; J3010; J3490; J7030

== ENCOUNTER 2018-07-15 07:16 | Day surgery (SDC) | payer MEDICARE, MEDICAID ==
[~2018-07-15] VITALS: Ht 165.1 cm; Wt 126.0 kg
[~2018-07-15 07:16] MED LIST changes: -AMLO10TA6 PO; +AMLO10TA8 PO; +ATOR20TA37 PO; +BUPIVACAINE/PF 0.5% ONE; +CALC667T PO; +CARV6.252 PO; +FURO20TA3 PO; +HEPARIN 1,000 UNITS/ML, 10ML ONE; +LOSA50TA14 PO; +PROTAMINE SULFATE 10 MG/ML, 5ML ONE; +THROMBIN 5,000 UNIT VIAL TP ONE
[2018-07-15] MEDS ORDERED: SODIUM CHLORIDE 0.9% 1,000 ML IV SCH (09:10)
[2018-07-15] MEDS ORDERED: EPINEPHRINE 1 MG/ML, 1ML ONE (09:13)
[2018-07-15 09:59] VITALS: BP 128/71
[2018-07-15] MEDS ORDERED: FENTANYL PF 100 MCG/2ML ONE ×3 (10:42→13:32)
[2018-07-15] MEDS ORDERED: MIDAZOLAM 1 MG/ML, 2ML ONE (10:42)
[2018-07-15] MEDS ORDERED: CEFAZOLIN 1,000 MG ONE (11:00)
[2018-07-15] MEDS ORDERED: ONDANSETRON 2MG/ML, 2ML ONE (11:00)
[2018-07-15] MEDS ORDERED: PROPOFOL 10 MG/ML, 20ML ONE (11:00)
[2018-07-15] MEDS ORDERED: HEPARIN 1,000 UNITS/ML, 10ML DIALYCATH ONE (11:22)
[2018-07-15] MEDS ORDERED: hydrALAzine 20 MG/ML, 1ML IV PRN (13:00)
[2018-07-15] MEDS ORDERED: ALBUTEROL SULFATE 2.5 MG/3 ML NPPB PRN (13:00)
[2018-07-15] MEDS ORDERED: HALOPERIDOL 5 MG/ML IV PRN (13:00)
[2018-07-15] MEDS ORDERED: ACETAMINOPHEN 325 MG TABLET PO PRN (13:00)
[2018-07-15] MEDS ORDERED: PROMETHAZINE 25 MG/ML, 1ML IV PRN (13:00)
[2018-07-15] MEDS ORDERED: LABETALOL 5MG/ML, 20ML IV PRN (13:00)
[2018-07-15] MEDS ORDERED: HYDROmorphone 2 MG/ML, 1ML IVPush PRN (13:00)
[2018-07-15] MEDS ORDERED: OXYcodone 5 MG/5 ML ORAL.SOL UDC ONE (13:31)
[2018-07-15] MEDS: FENTANYL PF 100 MCG/2ML IV PRN ×2 (13:35→14:00)
[2018-07-15] MEDS: OXYcodone 5 MG/5 ML ORAL.SOL UDC PO PRN ×2 (13:35→15:35)
== END 2018-07-15 16:30 | disposition home or self-care (01) ==
LOC: OUT 07:16
PROVIDERS: ATTEND Surgery
DX: T82.858A Stenosis of other vascular prosthetic devices, implants and grafts, initial encounter (principal); E11.22 Type 2 diabetes mellitus with diabetic chronic kidney disease; I12.0 Hypertensive chronic kidney disease with stage 5 chronic kidney disease or end stage renal disease; N18.6 End stage renal disease; E66.01 Morbid (severe) obesity due to excess calories; Z68.42 Body mass index [BMI] 45.0-49.9, adult; Z86.73 Personal history of transient ischemic attack (TIA), and cerebral infarction without residual deficits; Z88.8 Allergy status to other drugs, medicaments and biological substances; Z79.82 Long term (current) use of aspirin; Z79.4 Long term (current) use of insulin; Z99.2 Dependence on renal dialysis; Y83.8 Other surgical procedures as the cause of abnormal reaction of the patient, or of later complication, without mention of misadventure at the time of the procedure; Y92.89 Other specified places as the place of occurrence of the external cause
CPT/HCPCS: 36415; 36832; 80047; J0171; J0690; J1644; J2250; J2405; J2704; J2720; J3010; J3490

== ENCOUNTER 2018-07-24 17:09 | Inpatient (IN) | payer MEDICARE, MEDICAID ==
[~2018-07-24] VITALS: Ht 165.1 cm; Wt 134.0 kg
[~2018-07-24 17:09] MED LIST changes: -BUPIVACAINE/PF 0.5% ONE; -HEPARIN 1,000 UNITS/ML, 10ML ONE; -PROTAMINE SULFATE 10 MG/ML, 5ML ONE; -THROMBIN 5,000 UNIT VIAL TP ONE
[2018-07-24] MEDS ORDERED: VANCOMYCIN 2,500 MG in SODIUM CHLORIDE 0.9% 500 ML IV ONE (18:00)
[2018-07-24] MEDS ORDERED: VANCOMYCIN PER PHARMACY IV ONE (18:00)
[2018-07-24] MEDS ORDERED: MORPHINE SULFATE 4 MG/ML, 1ML IVPush PRN (18:00)
[2018-07-24] MEDS ORDERED: ACETAMINOPHEN 325 MG TABLET PO ONE (18:00)
[2018-07-24] MEDS ORDERED: SODIUM CHLORIDE FLUSH 10ML SYR IVF ONE (18:00)
[2018-07-24] MEDS ORDERED: ACETAMINOPHEN 500 MG TABLET ONE (18:05)
[2018-07-24 18:29] LABS: PROTHROMBIN TIME 10.6 Seconds (9.6-11.5)
[2018-07-24 18:32] LABS: ALANINE AMINOTRANSFERASE 11 U/L (12-78); ALBUMIN 3.3 g/dL (3.4-5.0); ANION GAP 9 mmol/L (5-15); CALCIUM 8.2 mg/dL (8.5-10.1); CHLORIDE 110 mmol/L (98-107); CREATININE 7.86 mg/dL (0.55-1.02)
[2018-07-24 18:42] LABS: ALKALINE PHOSPHATASE 110 U/L (45-117); BILIRUBIN,TOTAL 0.4 mg/dL (0.2-1.0); TOTAL PROTEIN 7.4 g/dL (6.4-8.2)
[2018-07-24 18:43] LABS: MD YES; MEAN CORPUSCULAR HEMOGLOBIN 31.9 pg (27.0-34.8); MEAN CORPUSCULAR HGB CONC 33.3 g/dL (32.4-35.8); MEAN CORPUSCULAR VOLUME 95.5 fL (80-100); MEAN PLATELET VOLUME 8.1 fL (7.4-10.4); PLATELET COUNT 249 x10^3/uL (130-400); RED BLOOD COUNT 2.66 x10^6/uL (3.82-5.3); RED CELL DISTRIBUTION WIDTH 15.9 % (9.6-15.2)
[2018-07-24 18:46] LABS: BAND#(MANUAL) 0.18 x10^3/uL; BANDS%(MANUAL) 2 % (0-7); LYMPH#(MANUAL) 0.53 x10^3/uL (1-3.4); LYMPHS% (MANUAL) 6 % (22-44); MONOS#(MANUAL) 0.36 x10^3/uL (0.3-2.7); MONOS% (MANUAL) 4 % (2-9); SEG#(MANUAL) 7.83 x10^3/uL (1.8-6.8); SEGS% (MANUAL) 88 % (42-75)
[2018-07-24 18:47] LABS: <PLATELET ESTIMATE> ADEQUATE; ANISOCYTOSIS 1+
[2018-07-24 18:49] LABS: <PLT MORPHOLOGY> NORMAL PLT MORPH
--- NOTE | 2018-07-24 18:54 | NUR ---
REPORT GIVEN TO KAR BLAKE.
--- NOTE | 2018-07-24 19:19 | NUR ---
PT TO US VIA [facility].
[2018-07-24] MEDS ORDERED: MORPHINE SULFATE 4 MG/ML, 1ML ONE (19:50)
--- NOTE | 2018-07-24 20:15 | NUR ---
PT MEDICATED FOR PAIN PER MAR. AWAITING PUMP AT THIS TIME FROM [facility] TO [facility] IV [facility]. VSS AND UPDATED IN EMR.
--- NOTE | 2018-07-24 20:52 | NUR ---
MEDICATION PUMP FINALLY BROUGHT TO OUR UNIT. PT MEDICATED WITH IV ABX PER AUG.
[2018-07-24] MEDS: AMPICILLIN/SULBACTAM 3 GM in SODIUM CHLORIDE 0.9% 100 ML IV SCH (21:00)
[2018-07-24] MEDS ORDERED: VANCOMYCIN PER PHARMACY MC PRN (21:00)
[2018-07-24] MEDS ORDERED: BISACODYL 10 MG SUPP PR PRN (21:30)
[2018-07-24] MEDS ORDERED: DOCUSATE 100 MG CAPSULE PO PRN (21:30)
[2018-07-24] MEDS ORDERED: PROMETHAZINE 25 MG/ML, 1ML IM PRN (21:30)
[2018-07-24] MEDS ORDERED: MAGNESIUM SULFATE PMX 2GM/50ML 50 ML ONE (21:30)
[2018-07-24] MEDS ORDERED: ONDANSETRON ODT 4 MG PO PRN (21:30)
[2018-07-24] MEDS ORDERED: OXYcodone IR 5MG TABLET PO PRN (21:30)
[2018-07-24] MEDS ORDERED: ONDANSETRON 2MG/ML, 2ML IVPush PRN (21:30)
[2018-07-24] MEDS ORDERED: ALBUTEROL SULFATE 2.5 MG/3 ML HHN PRN (21:30)
[2018-07-24] MEDS ORDERED: hydrALAzine 20 MG/ML, 1ML IVPush PRN (21:30)
[2018-07-24] MEDS ORDERED: POLYETHYLENE GLYCOL 17 GM PACKET PO PRN (21:30)
[2018-07-24] MEDS ORDERED: ACETAMINOPHEN 325 MG TABLET PO PRN (21:30)
[2018-07-24] MEDS ORDERED: LABETALOL 5MG/ML, 20ML IVPush PRN (21:30)
[2018-07-24] MEDS ORDERED: ERGOCALCIFEROL 50,000 UNIT CAPSULE PO SCH (21:30)
[2018-07-24] MEDS ORDERED: MAGNESIUM SULFATE PMX 2GM/50ML 50 ML IV ONE (21:30)
[2018-07-24 21:41] LABS: FREE T4 (FREE THYROXINE) 0.73 ng/dL (0.76-1.46); THYROID STIMULATING HORMONE 3.7 mIU/L (0.358-3.740)
[2018-07-24 21:53] LABS: HEMOGLOBIN A1C 6.4 % (4.2-6.3)
[2018-07-24] MEDS ORDERED: DARBEPOETIN 100 MCG/ML SQ SCH (22:00)
--- NOTE | 2018-07-24 22:19 | NUR ---
MAURICIO FROM PHARMACY X 2. PHARMACY WAS UNABLE TO LOCATE THE YELLOW SLIP THIS RN SENT, SO WORKING ON ORDERS AGAIN RIGHT NOW.
[2018-07-25 01:25] VITALS: BP 130/62
[2018-07-25 01:45] VITALS: BP 130/62
[2018-07-25 02:55] VITALS: BP 100/48
[2018-07-25] MEDS ORDERED: PHARMACOKINETIC CONSULTATION MC ONE (03:00)
[2018-07-25] MEDS ORDERED: PHARMACOKINETIC MONITORING MC PRN (03:00)
[2018-07-25 06:51] VITALS: BP 147/71
[2018-07-25] MEDS: INSULIN LISPRO 100 UNITS/ML, PEN SQ-INSULIN SCH ×4 (08:09→20:22)
[2018-07-25] MEDS: CALCIUM ACETATE 667 MG CAPSULE PO SCH ×3 (09:00→20:25)
[2018-07-25] MEDS: OMEPRAZOLE 20 MG CAPSULE.DR PO SCH (09:00)
[2018-07-25] MEDS: FUROSEMIDE 40 MG TABLET PO SCH (09:00)
[2018-07-25] MEDS: LOSARTAN 50MG TABLET PO SCH (09:00)
[2018-07-25] MEDS: ASPIRIN 81 MG TABLET EC PO SCH (09:00)
[2018-07-25] MEDS: CARVEDILOL 6.25 MG TABLET PO SCH ×2 (09:00→20:23)
[2018-07-25] MEDS: AMLODIPINE 10 MG TAB PO SCH (09:00)
[2018-07-25 09:40] LABS: ALANINE AMINOTRANSFERASE 11 U/L (12-78); ANION GAP 12 mmol/L (5-15); CALCIUM 8.4 mg/dL (8.5-10.1); CHLORIDE 111 mmol/L (98-107); CHOLESTEROL, TOTAL 116 mg/dL (140-239); TRIGLYCERIDES 117 mg/dL (50-200); VLDL CHOLESTEROL 23 mg/dL (0-25)
[2018-07-25 09:44] LABS: % IRON SATURATION 8 % (20-55); ALKALINE PHOSPHATASE 92 U/L (45-117); BILIRUBIN,TOTAL 0.6 mg/dL (0.2-1.0); CHOL/HDL RATIO 2.2; CREATININE 8.02 mg/dL (0.55-1.02); HDL CHOL % 46 % (28-40); HDL CHOLESTEROL (DIRECT) 53 mg/dL (40-60); IRON LEVEL 19 mcg/dL (50-170); LDL CHOLESTEROL,CALCULATED 40 mg/dL (54-169); LDL/HDL RATIO 0.8 (0.5-3.0); TOTAL IRON BINDING CAPACITY 227 mcg/dL (250-450); TOTAL PROTEIN 6.9 g/dL (6.4-8.2)
[2018-07-25 09:46] LABS: MEAN CORPUSCULAR HEMOGLOBIN 31.1 pg (27.0-34.8); MEAN CORPUSCULAR HGB CONC 32.8 g/dL (32.4-35.8); MEAN CORPUSCULAR VOLUME 94.9 fL (80-100); MEAN PLATELET VOLUME 7.4 fL (7.4-10.4); PLATELET COUNT 261 x10^3/uL (130-400); RED BLOOD COUNT 2.41 x10^6/uL (3.82-5.3); RED CELL DISTRIBUTION WIDTH 16.1 % (9.6-15.2)
[2018-07-25 10:42] LABS: BASOPHILS # (AUTO) 0.02 x10^3/uL (0-0.1); BASOPHILS % (AUTO) 0 % (0-1); EOSINOPHILS # (AUTO) 0.09 x10^3/uL (0-0.4); EOSINOPHILS % (AUTO) 1 % (1-7); LYMPHOCYTES # (AUTO) 1.29 x10^3/uL (1-3.4); LYMPHOCYTES % (AUTO) 15 % (22-44); MD SCAN; MONOCYTES % (AUTO) 5 % (2-9); NEUTROPHILS # (AUTO) 6.64 x10^3/uL (1.8-6.8); NEUTROPHILS % (AUTO) 79 % (42-75)
[2018-07-25] MEDS: morphine SULFATE 10 MG/ML, 1ML IVPush PRN ×3 (11:09→23:33)
[2018-07-25 14:35] VITALS: BP 129/51
[2018-07-25] MEDS: IRON SUCROSE COMPLEX 100MG/5ML IV SCH (14:40)
[2018-07-25] MEDS: ATORVASTATIN 20 MG TABLET PO SCH (20:23)
[2018-07-25] MEDS: AMPICILLIN/SULBACTAM 3 GM in SODIUM CHLORIDE 0.9% 100 ML IV SCH (20:25)
[2018-07-25 21:29] VITALS: BP 100/47
[2018-07-26 03:25] VITALS: BP 120/62
[2018-07-26 05:47] LABS: CHLORIDE 107 mmol/L (98-107)
[2018-07-26 05:54] LABS: ALANINE AMINOTRANSFERASE 10 U/L (12-78); ALBUMIN 2.8 g/dL (3.4-5.0); ALKALINE PHOSPHATASE 85 U/L (45-117); ANION GAP 9 mmol/L (5-15); BILIRUBIN,TOTAL 0.5 mg/dL (0.2-1.0); CALCIUM 8.5 mg/dL (8.5-10.1); CREATININE 5.25 mg/dL (0.55-1.02); TOTAL PROTEIN 6.7 g/dL (6.4-8.2)
[2018-07-26 05:58] LABS: MEAN CORPUSCULAR HEMOGLOBIN 32.2 pg (27.0-34.8); MEAN CORPUSCULAR VOLUME 94.7 fL (80-100); MEAN PLATELET VOLUME 7.5 fL (7.4-10.4); PLATELET COUNT 249 x10^3/uL (130-400); RED BLOOD COUNT 2.31 x10^6/uL (3.82-5.3); RED CELL DISTRIBUTION WIDTH 15.8 % (9.6-15.2)
[2018-07-26 06:03] LABS: VANCOMYCIN,RANDOM 23.6 mcg/mL
[2018-07-26 06:12] LABS: CALCIUM 8.5 mg/dL (8.5-10.1)
[2018-07-26 06:16] LABS: BASOPHILS # (AUTO) 0.05 x10^3/uL (0-0.1); BASOPHILS % (AUTO) 1 % (0-1); EOSINOPHILS # (AUTO) 0.18 x10^3/uL (0-0.4); EOSINOPHILS % (AUTO) 3 % (1-7); LYMPHOCYTES # (AUTO) 1.47 x10^3/uL (1-3.4); LYMPHOCYTES % (AUTO) 23 % (22-44); MD SCAN; MONOCYTES # (AUTO) 0.41 x10^3/uL (0.2-0.8); MONOCYTES % (AUTO) 6 % (2-9); NEUTROPHILS # (AUTO) 4.39 x10^3/uL (1.8-6.8); NEUTROPHILS % (AUTO) 68 % (42-75)
[2018-07-26] MEDS: INSULIN LISPRO 100 UNITS/ML, PEN SQ-INSULIN SCH ×4 (07:00→21:44)
[2018-07-26 07:30] VITALS: BP 122/68
[2018-07-26] MEDS: morphine SULFATE 10 MG/ML, 1ML IVPush PRN ×3 (08:22→21:43)
[2018-07-26] MEDS: OMEPRAZOLE 20 MG CAPSULE.DR PO SCH (12:11)
[2018-07-26] MEDS: AMLODIPINE 10 MG TAB PO SCH (12:11)
[2018-07-26] MEDS: ASPIRIN 81 MG TABLET EC PO SCH (12:11)
[2018-07-26] MEDS: CARVEDILOL 6.25 MG TABLET PO SCH ×2 (12:11→21:44)
[2018-07-26] MEDS: FUROSEMIDE 40 MG TABLET PO SCH (12:12)
[2018-07-26] MEDS: LOSARTAN 50MG TABLET PO SCH (12:12)
[2018-07-26] MEDS: IRON SUCROSE COMPLEX 100MG/5ML IV SCH (12:12)
[2018-07-26] MEDS: CALCIUM ACETATE 667 MG CAPSULE PO SCH ×2 (13:44→17:40)
[2018-07-26 14:00] VITALS: BP 126/58
[2018-07-26] MEDS ORDERED: CALCIUM ACETATE 667 MG CAPSULE PO SCH (16:00)
[2018-07-26 19:07] VITALS: BP 136/75
[2018-07-26] MEDS: AMPICILLIN/SULBACTAM 3 GM in SODIUM CHLORIDE 0.9% 100 ML IV SCH (21:43)
[2018-07-26] MEDS: ATORVASTATIN 20 MG TABLET PO SCH (21:43)
[2018-07-27 01:40] VITALS: BP 140/84
[2018-07-27 06:14] LABS: BASOPHILS # (AUTO) 0.03 x10^3/uL (0-0.1); BASOPHILS % (AUTO) 0 % (0-1); EOSINOPHILS % (AUTO) 3 % (1-7); LYMPHOCYTES % (AUTO) 17 % (22-44); MD NO; MEAN CORPUSCULAR HEMOGLOBIN 32.1 pg (27.0-34.8); MEAN CORPUSCULAR HGB CONC 33.8 g/dL (32.4-35.8); MEAN CORPUSCULAR VOLUME 94.8 fL (80-100); MEAN PLATELET VOLUME 7.6 fL (7.4-10.4); MONOCYTES # (AUTO) 0.35 x10^3/uL (0.2-0.8); MONOCYTES % (AUTO) 5 % (2-9); NEUTROPHILS # (AUTO) 5.93 x10^3/uL (1.8-6.8); NEUTROPHILS % (AUTO) 76 % (42-75); PLATELET COUNT 280 x10^3/uL (130-400); RED BLOOD COUNT 2.49 x10^6/uL (3.82-5.3); RED CELL DISTRIBUTION WIDTH 15.4 % (9.6-15.2)
[2018-07-27 06:15] LABS: ALANINE AMINOTRANSFERASE 9 U/L (12-78); ALBUMIN 2.8 g/dL (3.4-5.0); ANION GAP 10 mmol/L (5-15); CALCIUM 8.7 mg/dL (8.5-10.1); CHLORIDE 105 mmol/L (98-107); CREATININE 6.51 mg/dL (0.55-1.02)
[2018-07-27 06:18] LABS: ALKALINE PHOSPHATASE 84 U/L (45-117); BILIRUBIN,TOTAL 0.4 mg/dL (0.2-1.0); TOTAL PROTEIN 6.9 g/dL (6.4-8.2)
[2018-07-27 07:50] VITALS: BP 138/79
[2018-07-27] MEDS: OMEPRAZOLE 20 MG CAPSULE.DR PO SCH (08:33)
[2018-07-27] MEDS: INSULIN LISPRO 100 UNITS/ML, PEN SQ-INSULIN SCH ×3 (08:33→16:00)
[2018-07-27] MEDS: AMLODIPINE 10 MG TAB PO SCH (08:33)
[2018-07-27] MEDS: CARVEDILOL 6.25 MG TABLET PO SCH (08:34)
[2018-07-27] MEDS: CALCIUM ACETATE 667 MG CAPSULE PO SCH ×3 (08:34→17:00)
[2018-07-27] MEDS: ASPIRIN 81 MG TABLET EC PO SCH (08:34)
[2018-07-27] MEDS: FUROSEMIDE 40 MG TABLET PO SCH (08:34)
[2018-07-27] MEDS: LOSARTAN 50MG TABLET PO SCH (08:43)
[2018-07-27] MEDS: morphine SULFATE 10 MG/ML, 1ML IVPush PRN ×2 (10:27→18:09)
[2018-07-27 12:56] VITALS: BP 132/83
[2018-07-27] MEDS: IRON SUCROSE COMPLEX 100MG/5ML IV SCH (14:35)
[2018-07-27] MEDS ORDERED: HYDR-3240 PO (16:47)
[2018-07-27] MEDS ORDERED: SULF1TAB24 PO (16:48)
== END 2018-07-27 19:39 | disposition home or self-care (01) | DRG 602 ==
LOC: ED 19:12 → EDIP 19:39 → CCU 07-25 01:21 → 5SO 07-25 03:04 → 4EST 07-26 18:17
PROVIDERS: ADMIT Internal Medicine; ATTEND Internal Medicine
PROC: 5A1D70Z Performance of Urinary Filtration, Intermittent, Less than 6 Hours Per Day (ICD-10-PCS; principal; 2018-07-25)
PROC: 5A1D70Z Performance of Urinary Filtration, Intermittent, Less than 6 Hours Per Day (ICD-10-PCS; 2018-07-27)
DX: L03.113 Cellulitis of right upper limb (principal); N18.6 End stage renal disease; E43 Unspecified severe protein-calorie malnutrition; I50.33 Acute on chronic diastolic (congestive) heart failure; I13.2 Hypertensive heart and chronic kidney disease with heart failure and with stage 5 chronic kidney disease, or end stage renal disease; Z68.42 Body mass index [BMI] 45.0-49.9, adult; E55.9 Vitamin D deficiency, unspecified; E78.5 Hyperlipidemia, unspecified; E11.22 Type 2 diabetes mellitus with diabetic chronic kidney disease; E87.5 Hyperkalemia; M10.9 Gout, unspecified; K21.9 Gastro-esophageal reflux disease without esophagitis; N20.0 Calculus of kidney; E03.9 Hypothyroidism, unspecified; D63.1 Anemia in chronic kidney disease; E66.9 Obesity, unspecified; E88.89 Other specified metabolic disorders; N25.0 Renal osteodystrophy; Z80.3 Family history of malignant neoplasm of breast; Z82.3 Family history of stroke; Z82.49 Family history of ischemic heart disease and other diseases of the circulatory system; Z83.3 Family history of diabetes mellitus; Z86.73 Personal history of transient ischemic attack (TIA), and cerebral infarction without residual deficits; Z87.442 Personal history of urinary calculi; Z87.891 Personal history of nicotine dependence; Z99.2 Dependence on renal dialysis; Z90.89 Acquired absence of other organs; Z98.51 Tubal ligation status; Z88.8 Allergy status to other drugs, medicaments and biological substances
CPT/HCPCS: 36415; 71045; 80053; 80061; 80202; 82306; 82310; 82728; 82962; 83036; 83540; 83550; 83605; 83735; 83880; 83970; 84100; 84439; 84443; 85025; 85610; 86140; 86705; 86706; 87040; 87340; 93005; 96365; 96367; 96375; G0378; J0295; J0881; J1756; J2405; J3370; J2270; J3475; J7040